=== PATIENT | female | born 1940 ===

== ENCOUNTER 2019-03-02 07:46 | Outpatient (CLI) | payer OTHER ==
[~2019-03-02] VITALS: Ht 149.9 cm; Wt 58.1 kg
[2019-03-02] MEDS ORDERED: OMEPRAZOLE20 MG PO (08:42)
[2019-03-02] MEDS ORDERED: ZANTAC300 MG PO (08:42)
[2019-03-02] MEDS ORDERED: LIPO-FLAVONOID1 EACH PO (08:42)
== END 2019-03-02 08:00 | disposition home or self-care (01) ==
LOC: OFIC 805 07:46
DX: H91.8X3 Other specified hearing loss, bilateral (principal); R42 Dizziness and giddiness; K21.9 Gastro-esophageal reflux disease without esophagitis; R49.8 Other voice and resonance disorders; J38.7 Other diseases of larynx; R13.10 Dysphagia, unspecified

== ENCOUNTER 2019-04-26 08:43 | Outpatient (CLI) | payer OTHER ==
[~2019-04-26 08:43] MED LIST: LIPO-FLAVONOID1 EACH PO; OMEPRAZOLE20 MG PO; ZANTAC300 MG PO
== END 2019-04-26 08:49 | disposition home or self-care (01) ==
LOC: RX STUDY 08:43
DX: R13.14 Dysphagia, pharyngoesophageal phase (principal)

== ENCOUNTER 2019-06-08 08:17 | Outpatient (CLI) | payer OTHER ==
[~2019-06-08] VITALS: Ht 121.9 cm; Wt 56.7 kg
[2019-06-08] MEDS ORDERED: CLARITIN10 MG PO (10:18)
[2019-06-08] MEDS ORDERED: LEVOTHYROXINE25 MCG PO (10:18)
== END 2019-06-08 13:13 | disposition home or self-care (01) ==
LOC: OFIC 805 08:17
DX: H91.8X3 Other specified hearing loss, bilateral (principal); R42 Dizziness and giddiness; R13.19 Other dysphagia; K21.9 Gastro-esophageal reflux disease without esophagitis; R49.8 Other voice and resonance disorders; J38.7 Other diseases of larynx; K22.8 Other specified diseases of esophagus